=== PATIENT | female | born 1955 | race Caucasian/White ===

== ENCOUNTER 2018-04-20 10:44 | Emergency (ER) | payer MEDICAID ==
[~2018-04-20] VITALS: Ht 152.4 cm; Wt 43.6 kg
[2018-04-20] VITALS (7 sets, daily range): BP systolic 80–100; BP diastolic 47–53
[~2018-04-20 10:44] MED LIST: FOLI-17 PO; FURO20TA3 PO; MAGN400T7 PO; OMEP-110 PO; SPIR50TA4 PO; SUCR1TAB PO; THIA100T67 PO; [UNRECOGNIZED DRUG - OTHER]
[2018-04-20] MEDS ORDERED: SODIUM CHLORIDE FLUSH 10ML SYR IVF ONE (12:00)
[2018-04-20 12:22] LABS: INTERNATIONAL NORMALIZED RATIO 1.24 (0.93-1.1); PROTHROMBIN TIME 12.8 Seconds (9.6-11.5)
[2018-04-20 12:23] LABS: ALANINE AMINOTRANSFERASE 29 U/L (12-78); ALBUMIN 3.1 g/dL (3.4-5.0); ANION GAP 14 mmol/L (5-15); CALCIUM 8.6 mg/dL (8.5-10.1); CHLORIDE 103 mmol/L (98-107); CREATININE 1.88 mg/dL (0.55-1.02)
[2018-04-20 12:25] LABS: ALKALINE PHOSPHATASE 196 U/L (45-117); BILIRUBIN,TOTAL 4.9 mg/dL (0.2-1.0); TOTAL PROTEIN 7.7 g/dL (6.4-8.2)
[2018-04-20 12:27] LABS: MD YES; MEAN CORPUSCULAR HEMOGLOBIN 39.3 pg (27.0-34.8); MEAN CORPUSCULAR HGB CONC 33.7 g/dL (32.4-35.8); MEAN CORPUSCULAR VOLUME 116.6 fL (80-100); MEAN PLATELET VOLUME 6.7 fL (7.4-10.4); PLATELET COUNT 161 x10^3/uL (130-400); RED BLOOD COUNT 1.49 x10^6/uL (3.82-5.3)
[2018-04-20 12:29] LABS: HEMOGRAM NOTE RECHECKED
[2018-04-20 13:08] LABS: BAND#(MANUAL) 0.21 x10^3/uL; BANDS%(MANUAL) 3 % (0-7); BASOS#(MANUAL) 0.07 x10^3/uL (0-0.1); BASOS% (MANUAL) 1 % (0-1); EOS#(MANUAL) 0.07 x10^3/uL (0.0-0.4); EOS% (MANUAL) 1 % (1-7); LYMPH#(MANUAL) 1.12 x10^3/uL (1-3.4); LYMPHS% (MANUAL) 16 % (22-44); METAMYELOCYTES# (MANUAL) 0.07 x10^3/uL (0-0); METAMYELOCYTES% (MANUAL) 1 % (0-1); MONOS#(MANUAL) 0.77 x10^3/uL (0.3-2.7); MONOS% (MANUAL) 11 % (2-9); REACTIVE LYMPHS # (MANUAL) 0.07 x10^3/uL (0-0); REACTIVE LYMPHS % (MANUAL) 1 % (0-0); SEG#(MANUAL) 4.62 x10^3/uL (1.8-6.8); SEGS% (MANUAL) 66 % (42-75)
[2018-04-20 13:09] LABS: ANISOCYTOSIS 1+; POLYCHROMASIA 1+
[2018-04-20 13:10] LABS: OVALOCYTES 1+
[2018-04-20 13:11] LABS: ECHINOCYTES 1+; TEAR DROPS 1+
[2018-04-20 13:12] LABS: ACANTHOCYTES 1+
[2018-04-20 13:13] LABS: <PLATELET ESTIMATE> ADEQUATE; <PLT MORPHOLOGY> NORMAL PLT MORPH
[2018-04-20 13:14] LABS: SCHISTOCYTES 1+
[2018-04-20 13:15] LABS: SPHEROCYTES 1+
== END 2018-04-20 16:23 | disposition home or self-care (01) ==
LOC: ED 11:54
DX: D50.0 Iron deficiency anemia secondary to blood loss (chronic) (principal); Z72.9 Problem related to lifestyle, unspecified
CPT/HCPCS: 36415; 80053; 85025; 85610; 85730; 86850; 86900; 86923; 99284; P9016

== ENCOUNTER 2018-06-17 11:42 | Emergency (ER) | payer MEDICAID ==
[~2018-06-17] VITALS: Ht 154.9 cm; Wt 45.4 kg
--- NOTE | 2018-06-17 12:08 | NUR ---
FIRST CONTACT WITH PT. PT WAS SENT BY DUE TO LOW H&H. LAST BLOOD TEST WAS LAST WED. PT STATES " I MIGHT NEED BLOOD TRANSFUSION." PT DENIES ANY S/S. EDMD ROMEO AT BEDSIDE AND EXPLAINING POC. BP AND SPO2 MONITORS IN PLACE. CALL LIGHT WITHIN REACH. PT AOX4. RESPS EVEN AND UNLABORED.
[2018-06-17 13:00] LABS: MEAN CORPUSCULAR HEMOGLOBIN 38.6 pg (27.0-34.8); MEAN CORPUSCULAR HGB CONC 34.5 g/dL (32.4-35.8); MEAN CORPUSCULAR VOLUME 111.9 fL (80-100); MEAN PLATELET VOLUME 6.4 fL (7.4-10.4); PLATELET COUNT 137 x10^3/uL (130-400); RED BLOOD COUNT 1.65 x10^6/uL (3.82-5.3); RED CELL DISTRIBUTION WIDTH 15.5 % (9.6-15.2)
--- NOTE | 2018-06-17 13:03 | NUR ---
hgb 6.4 hct 18.4 by lab. sin gonzalez notified.
[2018-06-17 13:25] LABS: MD YES
[2018-06-17 13:27] LABS: ANISOCYTOSIS 1+; BAND#(MANUAL) 0.05 x10^3/uL; BANDS%(MANUAL) 1 % (0-7); BASOS#(MANUAL) 0.05 x10^3/uL (0-0.1); BASOS% (MANUAL) 1 % (0-1); EOS#(MANUAL) 0.32 x10^3/uL (0.0-0.4); EOS% (MANUAL) 6 % (1-7); LYMPH#(MANUAL) 1.33 x10^3/uL (1-3.4); LYMPHS% (MANUAL) 25 % (22-44); MONOS#(MANUAL) 0.37 x10^3/uL (0.3-2.7); MONOS% (MANUAL) 7 % (2-9); POLYCHROMASIA 1+; REACTIVE LYMPHS # (MANUAL) 0.05 x10^3/uL (0-0); REACTIVE LYMPHS % (MANUAL) 1 % (0-0); SEG#(MANUAL) 3.13 x10^3/uL (1.8-6.8); SEGS% (MANUAL) 59 % (42-75)
[2018-06-17 13:28] LABS: OVALOCYTES 1+; ROULEAUX 1+; TEAR DROPS 1+
[2018-06-17 13:29] LABS: ACANTHOCYTES 1+; ECHINOCYTES 1+
[2018-06-17 13:32] LABS: <PLATELET ESTIMATE> ADEQUATE; <PLT MORPHOLOGY> NORMAL PLT MORPH
--- NOTE | 2018-06-17 13:35 | NUR ---
CONSENT FORM SIGNED BY PT AND EDMD. BLOOD ORDERED FROM BLOOD BANK.
[2018-06-17 13:47] VITALS: BP 86/52
[2018-06-17 13:51] VITALS: BP 88/49
--- NOTE | 2018-06-17 14:00 | NUR ---
BLOOD TRANSFUSION START TIME AT 13:47. THIS RN MONITORING PT AT BEDSIDE AT THIS TIME. PT DENIES ANY REACTIONS FROM BLOOD TRANSUFUSION AT THIS TIME. BP AND SPO2 MONITORS IN PLACE.
[2018-06-17 14:08] VITALS: BP 85/48
--- NOTE | 2018-06-17 14:20 | NUR ---
PRECEPTOR NOTE: CHEPE WALTERS NOTIFIED PT'S TEMP WENT FROM 97.9 IMMEDIATELY PRIOR TO TRANSFUSION TO 98.4 AFTER STARTING TRANSFUSION. PT DENYING ANY SOB/CP/BACK PAIN/ITCHINESS, PT HAS NO SX AT THIS TIME. OTHER VS REVIEWED WITH CHEPE. PT A&O, RESPS EVEN AND UNLABORED. OK'D RN TO CONTINUE TRANSFUSION.
--- NOTE | 2018-06-17 14:40 | NUR ---
preceptor note: pt still transfusing PRBCs, pt a&o, resps even and unlabored. pt denies pain. pt denies sob, pt denies any other sx. PIV site CDI with no redness/edema. pt states "my blood pressure is always low", pt denies dizziness. EDMD aware of current bp. pt to be dc'd s/p transfusion.
[2018-06-17 14:42] VITALS: BP 88/49
--- NOTE | 2018-06-17 15:02 | NUR ---
PT STILL TRANSUFUING PRBC'S AT THIS TIME. PT AOX4. RESPS EVEN AND UNLABORED. PT DENIES ANY REACTIONS FROM TRANSUFUSION AT THIS TIME. PT PROVIDED LUNCH AT THIS TIME.
--- NOTE | 2018-06-17 15:29 | NUR ---
PT STILL TRANSUFUING PRBC'S AT THIS TIME. PT AOX4. RESPS EVEN AND UNLABORED. PT DENIES ANY S/S SUCH BACK PAIN/NAUSEA/SOB FROM TRANSUFUSION AT THIS TIME. PIV SITE CD&I.
--- NOTE | 2018-06-17 16:09 | NUR ---
blood transfusion complete. pt tolerated well. pt a&o, resps even and unlabored. nadn. pt to be dc'd.
[2018-06-17 16:10] VITALS: BP 96/64
== END 2018-06-17 16:15 | disposition home or self-care (01) ==
LOC: ED 12:54
DX: D63.8 Anemia in other chronic diseases classified elsewhere (principal); Z72.9 Problem related to lifestyle, unspecified
CPT/HCPCS: 36415; 36430; 85025; 86850; 86900; 86923; 99285; P9016; 99283

== ENCOUNTER 2019-01-07 09:37 | Inpatient (IN) | payer MEDICAID ==
[~2019-01-07] VITALS: Ht 154.9 cm; Wt 61.7 kg
[2019-01-15 10:35] VITALS: BP 82/49
== END 2019-01-17 00:30 | disposition expired | DRG 441 ==
LOC: ED 10:37 → EDIP 11:37 → 4EST 13:25 → 4WST 01-12 23:13 → 3NW 01-15 14:13
PROVIDERS: ADMIT Internal Medicine; ATTEND Internal Medicine
PROC: 30233N1 Transfusion of Nonautologous Red Blood Cells into Peripheral Vein, Percutaneous Approach (ICD-10-PCS; 2019-01-07)
PROC: 0DJ08ZZ Inspection of Upper Intestinal Tract, Via Natural or Artificial Opening Endoscopic (ICD-10-PCS; principal; 2019-01-08)
DX: K76.6 Portal hypertension (principal); K26.4 Chronic or unspecified duodenal ulcer with hemorrhage; J18.9 Pneumonia, unspecified organism; J96.01 Acute respiratory failure with hypoxia; K25.4 Chronic or unspecified gastric ulcer with hemorrhage; N17.9 Acute kidney failure, unspecified; S42.293A Other displaced fracture of upper end of unspecified humerus, initial encounter for closed fracture; N39.0 Urinary tract infection, site not specified; D62 Acute posthemorrhagic anemia; E44.0 Moderate protein-calorie malnutrition; N18.4 Chronic kidney disease, stage 4 (severe); N25.81 Secondary hyperparathyroidism of renal origin; D68.9 Coagulation defect, unspecified; E87.2 Acidosis; D69.59 Other secondary thrombocytopenia; Z51.5 Encounter for palliative care; K31.89 Other diseases of stomach and duodenum; K70.30 Alcoholic cirrhosis of liver without ascites; K80.50 Calculus of bile duct without cholangitis or cholecystitis without obstruction; K31.84 Gastroparesis; D63.8 Anemia in other chronic diseases classified elsewhere; W01.0XXA Fall on same level from slipping, tripping and stumbling without subsequent striking against object, initial encounter; E87.6 Hypokalemia; I12.9 Hypertensive chronic kidney disease with stage 1 through stage 4 chronic kidney disease, or unspecified chronic kidney disease; F41.9 Anxiety disorder, unspecified; D75.89 Other specified diseases of blood and blood-forming organs; E86.0 Dehydration; E83.51 Hypocalcemia; E05.90 Thyrotoxicosis, unspecified without thyrotoxic crisis or storm; E83.39 Other disorders of phosphorus metabolism; K59.00 Constipation, unspecified; R73.9 Hyperglycemia, unspecified; Z88.8 Allergy status to other drugs, medicaments and biological substances; Z91.041 Radiographic dye allergy status; Z88.5 Allergy status to narcotic agent; Z91.013 Allergy to seafood; Z90.89 Acquired absence of other organs; Y93.89 Activity, other specified; Y92.89 Other specified places as the place of occurrence of the external cause; Y99.8 Other external cause status; Z68.25 Body mass index [BMI] 25.0-25.9, adult
CPT/HCPCS: 36415; 36600; 71045; 74181; 76700; 80053; 80074; 80307; 81001; 82043; 82140; 82306; 82436; 82533; 82550; 82570; 82607; 82728; 82803; 82962; 83036; 83540; 83550; 83605; 83735; 83970; 84100; 84133; 84156; 84300; 84443; 85014; 85018; 85025; 85610; 85730; 86850; 86900; 86923; 87040; 87086; 93005; 94640; 99285; G0378; J0696; J2020; J2270; J2354; J2405; J2704; J7613; J7620; P9047; Q0162; C9113; J1630; J1940; J2060; J7030; J7050; J7120; P9016